=== PATIENT | male | born 1955 | race Caucasian/White ===

== ENCOUNTER → 2016-11-15 | Outpatient (CLI) | payer OTHER ==
[2016-11-15 09:31] LABS: ABSOLUTE BASOPHILS # (AUTO) 0.1 10^3/uL (0.0-0.2); ABSOLUTE EOSINOPHILS # (AUTO) 0.4 10^3/uL (0.0-0.6); ABSOLUTE LYMPHOCYTES (AUTO) 2.4 10^3/uL (0.5-4.7); ABSOLUTE MONOCYTES (AUTO) 0.8 10^3/uL (0.1-1.4); ABSOLUTE NEUT (AUTO) 5.4 10^3/uL (1.7-8.2); EOSINOPHILS % (AUTO) 4.1 % (0-6); HEMATOCRIT 47.2 % (37.9-51.0); HEMOGLOBIN 16.3 g/dL (13.5-17.0); HGB HCT DIFFERENCE 1.7; LYMPHOCYTES % (AUTO) 26.2 % (13-45); MEAN CORPUSCULAR HEMOGLOBIN 30.8 pg (27.0-33.4); MEAN CORPUSCULAR HGB CONC 34.6 g/dL (32.0-36.0); MEAN CORPUSCULAR VOLUME 89 fl (80-97); RED BLOOD COUNT 5.31 10^6/uL (4.35-5.55); RED CELL DISTRIBUTION WIDTH 12.9 % (11.5-14.0); SEGMENTED NEUTROPHILS % (AUTO) 59.7 % (42-78)
[2016-11-15 10:00] LABS: ALANINE AMINOTRANSFERASE 26 U/L (21-72); ALBUMIN 4.6 g/dL (3.5-5.0); ALKALINE PHOSPHATASE 55 U/L (38-126); ANION GAP 11 (5-19); ASPARTATE AMINO TRANSFERASE 18 U/L (17-59); BILIRUBIN,DIRECT 0.4 mg/dL (0.0-0.4); BILIRUBIN,TOTAL 0.5 mg/dL (0.2-1.3); BLOOD UREA NITROGEN 19 mg/dL (7-20); CALCIUM 10.3 mg/dL (8.4-10.2); CARBON DIOXIDE 24 mmol/L (22-30); CHLORIDE 106 mmol/L (98-107); Direct HDL 59 mg/dL (>40); GLUCOSE 102 mg/dL (75-110); POTASSIUM 4.7 mmol/L (3.6-5.0); SODIUM 141.3 mmol/L (137-145); TOTAL PROTEIN 7.3 g/dL (6.3-8.2); TRIGLYCERIDES 140 mg/dL (<150)
[2016-11-15 10:10] LABS: DIRECT LDL 152 mg/dL (<100)
== END ==
LOC: OD 08:15
PROVIDERS: ATTEND Family Medicine Geriatric Medicine
DX: Z79.899 Other long term (current) drug therapy (principal)
CPT/HCPCS: 36415; 80053; 80061; 83036; 84443; 85025

== ENCOUNTER → 2017-02-20 | Outpatient (CLI) | payer OTHER ==
[2017-02-20 09:29] LABS: ALANINE AMINOTRANSFERASE 37 U/L (21-72); ANION GAP 10 (5-19); ASPARTATE AMINO TRANSFERASE 24 U/L (17-59); BLOOD UREA NITROGEN 20 mg/dL (7-20); CARBON DIOXIDE 27 mmol/L (22-30); CHLORIDE 108 mmol/L (98-107); CHOLESTEROL 226.44 mg/dL (0-200); GLUCOSE 95 mg/dL (75-110); POTASSIUM 4.6 mmol/L (3.6-5.0); SODIUM 145.1 mmol/L (137-145); TRIGLYCERIDES 150 mg/dL (<150)
[2017-02-20 09:40] LABS: DIRECT LDL 150 mg/dL (<100)
== END ==
LOC: OD 08:10
PROVIDERS: ATTEND Family Medicine Geriatric Medicine
DX: E83.52 Hypercalcemia (principal)
CPT/HCPCS: 36415; 80048; 80061; 84450; 84460

== ENCOUNTER → 2017-05-30 | Outpatient (CLI) | payer OTHER ==
[2017-05-30 09:18] LABS: ALANINE AMINOTRANSFERASE 37 U/L (21-72); ASPARTATE AMINO TRANSFERASE 20 U/L (17-59); CHOLESTEROL 160.55 mg/dL (0-200); TRIGLYCERIDES 66 mg/dL (<150)
[2017-05-30 09:29] LABS: DIRECT LDL 81 mg/dL (<100)
== END ==
LOC: OD 08:24
PROVIDERS: ATTEND Family Medicine Geriatric Medicine
DX: E78.5 Hyperlipidemia, unspecified (principal); R73.01 Impaired fasting glucose; E66.9 Obesity, unspecified; Z79.899 Other long term (current) drug therapy; Z29.9 Encounter for prophylactic measures, unspecified
CPT/HCPCS: 36415; 80061; 83036; 84450; 84460

== ENCOUNTER → 2017-11-21 | Outpatient (CLI) | payer OTHER ==
[2017-11-21 10:02] LABS: ALANINE AMINOTRANSFERASE 37 U/L (21-72); ASPARTATE AMINO TRANSFERASE 24 U/L (17-59); CHOLESTEROL 148.19 mg/dL (0-200); TRIGLYCERIDES 62 mg/dL (<150)
[2017-11-21 10:13] LABS: DIRECT LDL 66 mg/dL (<100)
== END ==
LOC: OD 09:05
PROVIDERS: ATTEND Family Medicine Geriatric Medicine
DX: E78.5 Hyperlipidemia, unspecified (principal); R73.01 Impaired fasting glucose; Z79.899 Other long term (current) drug therapy
CPT/HCPCS: 36415; 80061; 83036; 84450; 84460

== ENCOUNTER → 2018-05-29 | Outpatient (CLI) | payer OTHER ==
[2018-05-29 10:18] LABS: ALANINE AMINOTRANSFERASE 44 U/L (21-72); ANION GAP 8 (5-19); BLOOD UREA NITROGEN 13 mg/dL (7-20); CARBON DIOXIDE 25 mmol/L (22-30); CHLORIDE 108 mmol/L (98-107); CHOLESTEROL 142.21 mg/dL (0-200); GLUCOSE 91 mg/dL (75-110); POTASSIUM 4.8 mmol/L (3.6-5.0); TRIGLYCERIDES 103 mg/dL (<150)
[2018-05-29 10:28] LABS: DIRECT LDL 84 mg/dL (<100)
== END ==
LOC: OD 08:24
PROVIDERS: ATTEND Family Medicine Geriatric Medicine
DX: E78.5 Hyperlipidemia, unspecified (principal); Z79.899 Other long term (current) drug therapy
CPT/HCPCS: 36415; 80048; 80061; 83036; 84460

== ENCOUNTER → 2018-11-27 | Outpatient (CLI) | payer OTHER ==
[2018-11-27 09:41] LABS: ABSOLUTE BASOPHILS # (AUTO) 0.1 10^3/uL (0.0-0.2); ABSOLUTE EOSINOPHILS # (AUTO) 0.3 10^3/uL (0.0-0.6); ABSOLUTE LYMPHOCYTES (AUTO) 1.7 10^3/uL (0.5-4.7); ABSOLUTE MONOCYTES (AUTO) 0.6 10^3/uL (0.1-1.4); ABSOLUTE NEUT (AUTO) 3.8 10^3/uL (1.7-8.2); HEMATOCRIT 45.9 % (37.9-51.0); HEMOGLOBIN 15.4 g/dL (13.5-17.0); LYMPHOCYTES % (AUTO) 26.8 % (13-45); MEAN CORPUSCULAR HEMOGLOBIN 30.2 pg (27.0-33.4); MEAN CORPUSCULAR HGB CONC 33.5 g/dL (32.0-36.0); MEAN CORPUSCULAR VOLUME 90 fl (80-97); MONOCYTES % (AUTO) 9.6 % (3-13); PLATELET COUNT 270 10^3/uL (150-450); RED BLOOD COUNT 5.09 10^6/uL (4.35-5.55); RED CELL DISTRIBUTION WIDTH 13.2 % (11.5-14.0); SEGMENTED NEUTROPHILS % (AUTO) 58.6 % (42-78); TOTAL CELLS COUNTED % (AUTO) 100 %; WHITE BLOOD COUNT 6.4 10^3/uL (4.0-10.5)
[2018-11-27 10:13] LABS: ANION GAP 10 (5-19); BLOOD UREA NITROGEN 18 mg/dL (7-20); CALCIUM 10.1 mg/dL (8.4-10.2); CARBON DIOXIDE 22 mmol/L (22-30); CHLORIDE 107 mmol/L (98-107); CHOLESTEROL 130.79 mg/dL (0-200); GLUCOSE 101 mg/dL (75-110); POTASSIUM 4.6 mmol/L (3.6-5.0); TRIGLYCERIDES 59 mg/dL (<150)
[2018-11-27 10:24] LABS: DIRECT LDL 79 mg/dL (<100)
== END ==
LOC: OD 08:27
PROVIDERS: ATTEND Family Medicine Geriatric Medicine
DX: E78.5 Hyperlipidemia, unspecified (principal); R73.01 Impaired fasting glucose; E66.9 Obesity, unspecified; Z79.899 Other long term (current) drug therapy
CPT/HCPCS: 36415; 80048; 80061; 83036; 84460; 85025

== ENCOUNTER → 2018-12-14 | Outpatient (CLI) | payer OTHER ==
--- NOTE | 2018-12-14 09:59 | RADIOLOGY REPORT (SQ) ---
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 NUMBER OF VIEWS: Three views. TECHNIQUE: AP, lateral and oblique radiographic images acquired of the left foot. LIMITATIONS: None. FINDINGS: MINERALIZATION: Normal. BONES: No acute fracture or dislocation. Bipartite tibial and fibula sesamoid bones overlie the head of the first metatarsal bone, normal anatomic variants. Plantar calcaneal spur. JOINTS: No effusions. SOFT TISSUES: No soft tissue swelling. No foreign body. OTHER: No other significant finding. IMPRESSION: 1. No acute osseous findings. 2. Calcaneal spur. TECHNICAL DOCUMENTATION: JOB ID: [id number] [employer]- All Rights Reserved Reading location - IP/workstation name: [email or web address]
== END ==
LOC: OD 07:39
PROVIDERS: ATTEND Family Medicine Geriatric Medicine
DX: M79.672 Pain in left foot (principal); Z79.899 Other long term (current) drug therapy
CPT/HCPCS: 36415; 84550

== ENCOUNTER 2019-05-23 05:42 | Observation (INO) | payer OTHER ==
--- NOTE | 2019-05-23 06:31 | EKG REPORT ---
SEVERITY:- ABNORMAL ECG - ATRIAL FLUTTER 2:1 BLOCK PROBABLE INFERIOR INFARCT, AGE INDETERMINATE REPOL ABNRM SUGGESTS ISCHEMIA, DIFFUSE LEADS : Confirmed by: Leighton Bennett MD 23-May-2019 06:31:08
[2019-05-23] MEDS ORDERED: NORMAL SALINE 250 ML IV ONE (06:40)
[2019-05-23 06:56] LABS: ABSOLUTE BASOPHILS # (AUTO) 0.1 10^3/uL (0.0-0.2); ABSOLUTE EOSINOPHILS # (AUTO) 0.3 10^3/uL (0.0-0.6); ABSOLUTE LYMPHOCYTES (AUTO) 1.4 10^3/uL (0.5-4.7); ABSOLUTE MONOCYTES (AUTO) 0.5 10^3/uL (0.1-1.4); ABSOLUTE NEUT (AUTO) 3.8 10^3/uL (1.7-8.2); BASOPHILS % (AUTO) 1.4 % (0-2); EOSINOPHILS % (AUTO) 4.2 % (0-6); HEMATOCRIT 45.4 % (37.9-51.0); HEMOGLOBIN 15.7 g/dL (13.5-17.0); MEAN CORPUSCULAR HEMOGLOBIN 30.9 pg (27.0-33.4); MEAN CORPUSCULAR HGB CONC 34.5 g/dL (32.0-36.0); MEAN CORPUSCULAR VOLUME 90 fl (80-97); MONOCYTES % (AUTO) 8.9 % (3-13); PLATELET COUNT 231 10^3/uL (150-450); RED BLOOD COUNT 5.07 10^6/uL (4.35-5.55); RED CELL DISTRIBUTION WIDTH 14.6 % (11.5-14.0); SEGMENTED NEUTROPHILS % (AUTO) 62.5 % (42-78); TOTAL CELLS COUNTED % (AUTO) 100 %
[2019-05-23 06:58] LABS: INTERNATIONAL RATION (INR) 1.09; PROTHROMBIN TIME 14.2 SEC (11.4-15.4)
[2019-05-23 06:59] LABS: PARTIAL THROMBOPLASTIN TIME 27.1 SEC (23.5-35.8)
[2019-05-23 07:01] LABS: D-DIMER 0.44 ug/mL (0.00-0.50)
[2019-05-23 07:06] LABS: ALBUMIN 3.7 g/dL (3.5-5.0); ALKALINE PHOSPHATASE 116 U/L (38-126); ANION GAP 9 (5-19); ASPARTATE AMINO TRANSFERASE 56 U/L (17-59); BILIRUBIN,TOTAL 0.7 mg/dL (0.2-1.3); BLOOD UREA NITROGEN 25 mg/dL (7-20); CALCIUM 9.1 mg/dL (8.4-10.2); CARBON DIOXIDE 18 mmol/L (22-30); CHLORIDE 112 mmol/L (98-107); GLUCOSE 118 mg/dL (75-110); TOTAL PROTEIN 6.3 g/dL (6.3-8.2)
[2019-05-23 07:17] LABS: TROPONIN I 0.028 ng/mL
[2019-05-23] MEDS ORDERED: HYDRALAZINE HCL INJ/PF 20 MG/1 ML SDV IV ONE (07:33)
[2019-05-23] MEDS ORDERED: NITROGLYCERIN 2% OINTMENT 1 GM PACKET TP ONE (07:34)
[2019-05-23] MEDS ORDERED: FUROSEMIDE INJ/PF 40 MG/4 ML SDV IV ONE (07:35)
[2019-05-23] MEDS ORDERED: MORPHINE SULFATE 10 MG/ML INJ IV ONE (07:41)
[2019-05-23 07:48] LABS: VENOUS BLOOD BASE EXCESS -5.1 mmol/L; VENOUS BLOOD HCO3 18.2 mmol/L (20-32); VENOUS BLOOD PCO2 30.2 mmHg (35-63); VENOUS BLOOD PH 7.4 (7.30-7.42)
[2019-05-23 08:46] LABS: APPEARANCE,URINE CLEAR; BILIRUBIN,URINE NEGATIVE (NEGATIVE); COLOR,URINE STRAW; GLUCOSE, URINE NEGATIVE (NEGATIVE); KETONES,URINE NEGATIVE (NEGATIVE); LEUKOCYTE ESTERASE,URINE NEGATIVE (NEGATIVE); NITRITE,URINE NEGATIVE (NEGATIVE); PROTEIN,URINE 30 mg/dL (NEGATIVE); URINE SPECIFIC GRAVITY 1.009; UROBILINOGEN,URINE NEGATIVE mg/dL (<2.0)
--- NOTE | 2019-05-23 08:48 | RADIOLOGY REPORT (SQ) ---
EXAM DESCRIPTION: CHEST 2 VIEWS IMAGES COMPLETED DATE/TIME: 05/23/2019 7:12 am REASON FOR STUDY: shortness of breath/tachycardia COMPARISON: None. NUMBER OF VIEWS: Two views. TECHNIQUE: Frontal and lateral radiographic views of the chest acquired. LIMITATIONS: None. FINDINGS: LUNGS AND PLEURA: No opacities, masses or pneumothorax. No pleural effusion. MEDIASTINUM AND HILAR STRUCTURES: No masses or contour abnormality. HEART AND VASCULAR STRUCTURES: Cardiac enlargement. Vascular congestion. BONES: No acute findings. HARDWARE: None in the chest. OTHER: No other significant finding. IMPRESSION: CARDIAC ENLARGEMENT. VASCULAR CONGESTION. TECHNICAL DOCUMENTATION: JOB ID: [id number] 2010 [employer]- All Rights Reserved Reading location - IP/workstation name: [email or web address]
--- NOTE | 2019-05-23 08:50 | RADIOLOGY REPORT (SQ) ---
EXAM DESCRIPTION: HIP RIGHT AP/LATERAL IMAGES COMPLETED DATE/TIME: 05/23/2019 7:12 am REASON FOR STUDY: pain COMPARISON: None. NUMBER OF VIEWS: Two views. TECHNIQUE: AP pelvis and additional frog-leg view of the right hip. LIMITATIONS: None. FINDINGS: Straight is. Joint space narrowing, subchondral cyst with near bone on bone contact right hip. SI joints are normal. IMPRESSION: Advanced osteoarthritis right hip. TECHNICAL DOCUMENTATION: JOB ID: [id number] 2010 [employer]- All Rights Reserved Reading location - IP/workstation name: [email or web address]
[2019-05-23 09:01] LABS: URINE AMPHETAMINES SCREEN NEGATIVE; URINE BARBITURATES SCREEN NEGATIVE; URINE BENZODIAZEPINES SCREEN NEGATIVE; URINE COCAINE SCREEN NEGATIVE; URINE MARIJUANA (THC) SCREEN NEGATIVE; URINE METHADONE SCREEN NEGATIVE; URINE PHENCYCLIDINE SCREEN NEGATIVE
[2019-05-23] MEDS ORDERED: METOPROLOL TARTRATE PF/INJ 5 MG/5 ML SDV IV ONE ×2 (09:49→10:35)
[2019-05-23] MEDS ORDERED: ASPIRIN 81 MG TABLET, CHEWABLE PO ONE (10:01)
--- NOTE | 2019-05-23 10:06 | RADIOLOGY REPORT (SQ) ---
EXAM DESCRIPTION: VENOUS BILATERAL LOWER IMAGES COMPLETED DATE/TIME: 05/23/2019 9:36 am REASON FOR STUDY: leg pain/sinus tachycardia/sobr COMPARISON: None. TECHNIQUE: Dynamic and static urias scale and color images acquired of both lower extremity venous sy stems. Selected spectral images acquired with additional compression and augmentation maneuvers. Imag es stored on PACS. LIMITATIONS: None. FINDINGS: RIGHT LEG COMMON FEMORAL AND FEMORAL: Normal phasicity, compression and augmentation. No visualized echogenic m aterial on urias scale. No defects on color images. POPLITEAL: Normal compression and augmentation. No visualized echogenic material on urias scale. No de fects on color images. CALF VESSELS: Normal compression and augmentation. No visualized echogenic material on urias scale. No defects on color image. GSV AND SSV: Normal compression. No visualized echogenic material on urias scale. No defects on color images. ANY DEEP VENOUS INSUFFICIENCY: Not evaluated. ANY EVIDENCE OF POPLITEAL CYST: No. OTHER: No other significant finding. LEFT LEG COMMON FEMORAL AND FEMORAL: Normal phasicity, compression and augmentation. No visualized echogenic m aterial on urias scale. No defects on color images. POPLITEAL: Normal compression and augmentation. No visualized echogenic material on urias scale. No de fects on color images. CALF VESSELS: Normal compression and augmentation. No visualized echogenic material on urias scale. No defects on color images. GSV AND SSV: Normal compression. No visualized echogenic material on urias scale. No defects on color images. ANY DEEP VENOUS INSUFFICIENCY: Not evaluated. ANY EVIDENCE POPLITEAL CYST: No. OTHER: No other significant finding. IMPRESSION: NO EVIDENCE DVT OR SVT IN EITHER LEG. TECHNICAL DOCUMENTATION: JOB ID: [id number] 2010 [employer]- All Rights Reserved Reading location - IP/workstation name: [email or web address]
--- NOTE | 2019-05-23 10:13 | ER Document Report ---
Entered by ARCHANA ALMAGUER SCRIBE 05/23/19 0640 Acting as scribe for:SRIDEVI PORTER MD ED General - General Chief Complaint: High Blood Pressure Stated Complaint: DIFFICULTY BREATHING,BLOOD PRESSURE ISSUES Time Seen by Provider: 05/23/19 06:14 Primary Care Provider: LOUIS COOLEY MD [Primary Care Provider] - Follow up as needed Information source: Patient Notes: This 63-year-old male presents to the emergency department complaining of difficulty breathing this morning at 4AM. Patient explains that he was awoken from his sleep and was "gasping for air". Patient states he had associated diaphoresis. Patient denies chest pain, nausea, throat pain, fever, cough or feeling his heart racing. Patient said that he felt normal when he went to sleep last night and took his usual Tylenol PM for sleep. Patient mentions that his has been checking his temperature and blood pressure since the start of the COVID-19 pandemic. Patient states that his temperature has been normal but he has been running a high blood pressure since they started checking about a week ago. Patient also mentions that he has noticed being short of breath since his right hip pain began in November, (6 months ago). Patient states that his hip pain right now is a 2/10. Patient states that he is overall healthy, drinks plenty of fluids, walks 30 minutes every evening and has been seeing his PCP every 6 months for the past three years. TRAVEL OUTSIDE OF THE [place] 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 denies: Fever EENT: See HPI. denies: Throat pain, Difficulty swallowing Cardiovascular: See HPI. denies: Chest pain, Heart racing Respiratory: See HPI, Short of breath. denies: Cough Gastrointestinal: See HPI. denies: Nausea Genitourinary: No symptoms reported Male Genitourinary: No symptoms reported Musculoskeletal: Other - Right hip pain Skin: No symptoms reported Hematologic/Lymphatic: No symptoms reported Neurological/Psychological: No symptoms reported -: Yes All other systems reviewed and negative Physical Exam - Vital signs Vitals: Resp 22 H 05/23/19 05:54 - Notes Notes: Physical Exam: General: Alert, appears well. HEENT: Normocephalic. Atraumatic. PERRL. Extraocular movements intact. Oropharynx clear. Neck: Supple. Non-tender. Respiratory: No respiratory distress. Clear and equal breath sounds bilaterally. Cardiovascular: Sinus Tachycardic. Abdominal: Normal Inspection. Non-tender. No distension. Normal Bowel Sounds. Back: No gross abnormalities. Extremities: Moves all four extremities. Upper extremities: Normal inspection. Normal ROM. Lower extremities: Normal inspection. No edema. Normal ROM. Neurological: Normal cognition. AAOx4. Normal speech. Psychological: Normal affect. Normal Mood. Skin: Warm. Dry. Normal color. Course - Re-evaluation Re-evalutation: 05/23/19 10:08 Patient has diuresed 3 L of's urine since treatment for congestive heart failure with IV Lasix 2 mg morphine and Nitropaste to skin. Sinus tachycardia has improved down to 102 with 5 mg IV Lopressor. Patient sats are 98% in room air. Patient continues to deny any chest pain and shortness of breath has improved. Patient does have an elevated troponin which may be secondary to congestive heart failure as opposed to coronary artery disease. Nonetheless 4 baby aspirin's has been prescribed to patient. Patient's risk factors for cardiac disease include hyperlipidemia hypertension age greater than 50 and obesity. - Vital Signs Vital signs: Temp Pulse Resp BP Pulse Ox 98.1 F 20 146/107 H 98 05/23/19 06:09 05/23/19 09:01 05/23/19 09:01 05/23/19 09:01 - Laboratory Result Diagrams: 05/23/19 06:15 05/23/19 06:15 Laboratory results interpreted by me: 03/30/20 03/30/20 03/30/20 06:15 06:15 06:15 RDW 14.6 H VBG pCO2 VBG HCO3 Chloride 112 H Carbon Dioxide 18 L BUN 25 H Glucose 118 H ALT 78 H NT-Pro-B Natriuret Pep 2370 H Urine Protein 05/23/19 05/23/19 07:25 08:15 RDW VBG pCO2 30.2 L VBG HCO3 18.2 L Chloride Carbon Dioxide BUN Glucose ALT NT-Pro-B Natriuret Pep Urine Protein 30 H Elevated troponin secondary to a troponin leak with congestive heart failure and sinus tachycardia. Elevated BNP consistent with CHF. - Diagnostic Test Radiology reviewed: Image reviewed, Reports reviewed Radiology results interpreted by me: 05/23/19 10:10 Chest x-ray shows cardiomegaly and vascular congestive markings consistent with CHF Right hip shows no acute process. No fractures no dislocation. Venous Doppler studies of both lower extremities are both negative for any DVT as a preliminary report from the cardiology service. - EKG Interpretation by Me Additional EKG results interpreted by me: 05/23/19 10:11 Twelve-lead EKG shows sinus tachycardia at 121 questionable old inferior PR repolarization changes of ischemia noted. Discharge - Discharge Clinical Impression: New onset of congestive heart failure, Sinus tachycardia, Elevated troponin I level, Hypertension Condition: Fair Disposition: ADMITTED INPATIENT Admitting Provider: Radha (Hospitalist) Unit Admitted: Telemetry Referrals: LOUIS COOLEY MD [Primary Care Provider] - Follow up as needed I personally performed the services described in the documentation, reviewed and edited the documentation which was dictated to the scribe in my presence, and it accurately records my words and actions.
[2019-05-23] MEDS ORDERED: MAG HYDROX/AL HYDROX/SIMETH SUSP 30 ML UDCUP PO PRN (10:44)
[2019-05-23] MEDS ORDERED: ACETAMINOPHEN 325 MG TABLET PO PRN (10:44)
[2019-05-23] MEDS ORDERED: MAGNESIUM HYDROXIDE SUSP 30 ML UDCUP PO PRN (10:44)
[2019-05-23] MEDS ORDERED: ONDANSETRON HCL INJ/PF 4 MG/2 ML SDV IV PRN (10:44)
[2019-05-23] MEDS ORDERED: LISINOPRIL 5 MG TABLET PO SCH (11:00)
[2019-05-23] MEDS ORDERED: LORAZEPAM 1 MG TABLET PO PRN (11:06)
--- NOTE | 2019-05-23 11:08 | PDOC H&P ---
History of Present Illness Admission Date/PCP: 05/23/19 10:39 LOUIS COOLEY MD Patient complains of: fatigue, orthopnea History of Present Illness: NOREEN LIANG III is a 63 year old male with a past medical history of hyperlipidemia, alcohol dependence, obesity, who presents to the emergency department with several weeks of progressively worsening fatigue, elevated hypertension and heart rate by home monitoring, and sudden onset of orthopnea last night. He specifically denies upper respiratory symptoms (rhinorrhea, sore throat, cough) and fever. Evaluation in the emergency department revealed tachycardia with heart rate in the 150s, hypertensive urgency, unremarkable CBC, coags,nml chemistry, proBNP of 2300, indeterminately elevated troponin of 0.028, normal urinalysis, and negative UDS. Serum EtOH is pending. Initial EKG showed atrial flutter with a 2-1 conduction. Chest x-ray shows cardiomegaly with vascular congestion. Hip x-ray and venous Dopplers are benign. He has been provided IV Lopressor and furosemide with excellent diuresis (3.5 L) and was referred to the hospitalist service for new onset CHF. Past Medical History Cardiac Medical History: Reports: Hyperlipidema Denies: Atrial Fibrillation, Congestive Heart Failure, Coronary Artery Disease, Myocardial Infarction, Hypertension Pulmonary Medical History: Reports: None EENT Medical History: Reports: None Neurological Medical History: Reports: None Endocrine Medical History: Reports: Obesity Renal/ Medical History: Reports: None Malignancy Medical History: Reports: None GI Medical History: Reports: None Musculoskeltal Medical History: Reports: None Skin Medical History: Reports: None Psychiatric Medical History: Reports: Alcohol Dependency Traumatic Medical History: Reports: None Hematology: Reports: None Infectious Medical History: Reports: None Past Surgical History Past Surgical History: Reports: Orthopedic Surgery - Left Shoulder Social History Information Source: Patient Lives with: Spouse/Significant other Smoking Status: Never Smoker Electronic Cigarette use?: No Frequency of Alcohol Use: Heavy Amount of Alcoholic Beverages Per Day: 4 Last Alcohol Use: 05/21/19 Hx Recreational Drug Use: No Drugs: None Hx Prescription Drug Abuse: No - Advance Directive Resuscitation Status: Full Code Family History Family History: Reviewed & Not Pertinent, CAD, Hypertension Parental Family History Reviewed: Yes Children Family History Reviewed: Yes Sibling(s) Family History Reviewed.: Yes Medication/Allergy Home Medications: Atorvastatin Calcium [Lipitor 40 mg Tablet] 40 mg PO QHS 05/23/19 Allergies/Adverse Reactions: No Known Allergies Allergy (Verified 05/23/19 10:31) Review of Systems Constitutional: PRESENT: fatigue. ABSENT: chills, fever(s), headache(s), weight gain, weight loss Eyes: ABSENT: visual disturbances Ears: ABSENT: hearing changes Cardiovascular: PRESENT: edema, orthropnea. ABSENT: chest pain, dyspnea on exertion, palpitations Respiratory: ABSENT: cough, hemoptysis Gastrointestinal: ABSENT: abdominal pain, constipation, diarrhea, hematemesis, hematochezia, nausea, vomiting Genitourinary: ABSENT: dysuria, hematuria Musculoskeletal: ABSENT: joint swelling Integumentary: ABSENT: rash, wounds Neurological: ABSENT: abnormal gait, abnormal speech, confusion, dizziness, focal weakness, syncope Psychiatric: ABSENT: anxiety, depression, homidical ideation, suicidal ideation Endocrine: ABSENT: cold intolerance, heat intolerance, polydipsia, polyuria Hematologic/Lymphatic: ABSENT: easy bleeding, easy bruising Physical Exam Vital Signs: Temp Pulse Resp BP Pulse Ox 98.1 F 28 H 123/97 H 95 05/23/19 06:09 05/23/19 10:01 05/23/19 10:00 05/23/19 10:00 Intake & Output 05/22/19 05/23/19 05/24/19 06:59 06:59 06:59 Output Total 3500 Balance -3500 Weight 104.326 kg General appearance: PRESENT: no acute distress, cooperative, obese, well- developed, well-nourished Head exam: PRESENT: atraumatic, normocephalic Eye exam: PRESENT: conjunctiva pink, EOMI, PERRLA. ABSENT: scleral icterus Ear exam: PRESENT: normal external ear exam Mouth exam: PRESENT: moist, tongue midline Neck exam: ABSENT: carotid bruit, JVD, lymphadenopathy, thyromegaly Respiratory exam: PRESENT: clear to auscultation alyssa, symmetrical, unlabored, other - room air. ABSENT: rales, rhonchi, wheezes Cardiovascular exam: PRESENT: RRR, +S1, +S2, tachycardia. ABSENT: diastolic murmur, rubs, systolic murmur Pulses: PRESENT: normal dorsalis pedis pul Vascular exam: PRESENT: normal capillary refill GI/Abdominal exam: PRESENT: normal bowel sounds, soft. ABSENT: distended, guarding, mass, organolmegaly, rebound, tenderness Rectal exam: PRESENT: deferred Extremities exam: PRESENT: full ROM, +1 edema - BLE. ABSENT: calf tenderness, clubbing Neurological exam: PRESENT: alert, awake, oriented to person, oriented to place, oriented to time, oriented to situation, CN II-XII grossly intact. ABSENT: motor sensory deficit Psychiatric exam: PRESENT: appropriate affect, normal mood. ABSENT: homicidal ideation, suicidal ideation Skin exam: PRESENT: dry, intact, warm. ABSENT: cyanosis, rash Results Laboratory Results: 05/23/19 06:15 05/23/19 06:15 05/23/19 05/23/19 05/23/19 06:15 06:15 06:15 WBC 6.0 RBC 5.07 Hgb 15.7 Hct 45.4 MCV 90 MCH 30.9 MCHC 34.5 RDW 14.6 H Plt Count 231 Seg Neutrophils % 62.5 VBG pH VBG pCO2 VBG HCO3 VBG Base Excess Sodium 139.4 Potassium 4.0 Chloride 112 H Carbon Dioxide 18 L Anion Gap 9 BUN 25 H Creatinine 0.82 Est GFR ( Amer) > 60 Glucose 118 H Lactic Acid Calcium 9.1 Total Bilirubin 0.7 AST 56 Alkaline Phosphatase 116 Total Protein 6.3 Albumin 3.7 TSH 2.84 Urine Color Urine Appearance Urine pH Ur Specific Plummer Urine Protein Urine Glucose (UA) Urine Ketones Urine Blood Urine Nitrite Ur Leukocyte Esterase Urine WBC (Auto) Urine RBC (Auto) 05/23/19 05/23/19 05/23/19 07:25 07:25 08:15 WBC RBC Hgb Hct MCV MCH MCHC RDW Plt Count Seg Neutrophils % VBG pH 7.40 VBG pCO2 30.2 L VBG HCO3 18.2 L VBG Base Excess -5.1 Sodium Potassium Chloride Carbon Dioxide Anion Gap BUN Creatinine Est GFR ( Amer) Glucose Lactic Acid 1.1 Calcium Total Bilirubin AST Alkaline Phosphatase Total Protein Albumin TSH Urine Color STRAW Urine Appearance CLEAR Urine pH 5.0 Ur Specific Plummer 1.009 Urine Protein 30 H Urine Glucose (UA) NEGATIVE Urine Ketones NEGATIVE Urine Blood NEGATIVE Urine Nitrite NEGATIVE Ur Leukocyte Esterase NEGATIVE Urine WBC (Auto) 1 Urine RBC (Auto) 1 05/23/19 06:15 Troponin I 0.028 NT-Pro-B Natriuret Pep 2370 H Impressions: Chest X-Ray 05/23/19 06:39 IMPRESSION: CARDIAC ENLARGEMENT. VASCULAR CONGESTION. Hip/Pelvis X-Ray 05/23/19 06:43 IMPRESSION: Advanced osteoarthritis right hip. Venous Doppler Study 05/23/19 06:54 IMPRESSION: NO EVIDENCE DVT OR SVT IN EITHER LEG. Assessment and Plan - Diagnosis (1) New onset atrial flutter Is this a current diagnosis for this admission?: Yes Plan: Rate controlled with IV Lopressor x1 by ED provider. Will admit to the medical floor on continuous cardiac telemetry. Full dose Lovenox. Will need to discuss chronic anticoagulation prior to discharge. PO diltiazem 30 mg every 6 hours. Daily aspirin therapy. Follow-up EKG in the morning. Outpatient cardiology follow-up. (2) New onset of congestive heart failure Is this a current diagnosis for this admission?: Yes Plan: Secondary to atrial fibrillation RVR. proBNP elevated at 3000. Echocardiogram pending. Daily aspirin and statin therapy. Start low-dose lisinopril. Diltiazem for atrial flutter RVR. Cardiac diet Daily weights, strict I&O's (3) Hypertension Qualifiers: Hypertension type: essential hypertension Qualified Code(s): I10 - Essential (primary) hypertension Is this a current diagnosis for this admission?: Yes Plan: Lisinopril and diltiazem as above. Cardiac diet. (4) Alcohol dependence Qualifiers: Substance use status: uncomplicated Qualified Code(s): F10.20 - Alcohol dependence, uncomplicated Is this a current diagnosis for this admission?: Yes Plan: Serum EtOH pending. No history of withdrawal. No evidence of withdrawal at this time, although, patient did present with at rial flutter RVR. Patient reports that he has had no changes in his usual alcohol intake of 3-4 beers nightly. Monitor closely for evidence of worsening withdrawal. PO Ativan as needed. Folic acid and thiamin supplementation. - Time Time Spent with patient: 35 or more minutes Medications reviewed and adjusted accordingly: Yes Anticipated discharge: Home Within: within 24 hours
[2019-05-23] MEDS ORDERED: ENOXAPARIN SODIUM INJ 100 MG/1 ML DISP.SYRIN SUBCUT ONE (11:15)
[2019-05-23] MEDS ORDERED: DILTIAZEM HCL 30 MG TABLET PO SCH (12:00)
[2019-05-23] MEDS: FOLIC ACID 1 MG TABLET PO SCH (12:24)
[2019-05-23] MEDS: THIAMINE HCL 100 MG TABLET PO SCH (12:24)
--- NOTE | 2019-05-23 13:26 | EKG REPORT ---
SEVERITY:- ABNORMAL ECG - A-FLUTTER W/ PREDOM 2:1 AV BLOCK, A-RATE 245 PROBABLE INFERIOR INFARCT, AGE INDETERMINATE LATERAL LEADS ARE ALSO INVOLVED : Confirmed by: Abhijit Mccracken 23-May-2019 13:24:37
--- NOTE | 2019-05-23 16:51 | XCELERA REPORT ---
[address] [address] Transthoracic Echocardiogram Report Name: NOREEN LIANG, III Age: 63 yrs Gender: Male : 1955 Patient Status: Inpatient Patient Location: [facility]^A Study Date: 05/23/2019 01:04 PM Height: 72 in Weight: 230 lb BSA: 2.3 m2 Reason For Study: New CHF exacerbation Ordering Physician: SOFÍA ESCALANTE Performed By: Kim Ballard Interpretation Summary Severely reduced left ventricular ejection fraction less than 30% Mild, concentric LVH Unable to determine diastolic function in the setting of rapid atrial flutter during exam Biatrial enlargement RV dilation (visually) Reduced RV function (visually) Mild TR with RVSP 30mmHg Trivial MR aortic root 3.8cm, mildly dilated MMode/2D Measurements & Calculations RVDd: 4.4 cm LVIDd: 5.3 cm FS: 18.6 % Ao root diam: 3.8 cm IVSd: 1.0 cm LVIDs: 4.3 cm EDV(Teich): 134.8 ml LVPWd: 0.99 cmESV(Teich): 83.4 ml Ao root area: 11.6 cm2 EF(Teich): 38.2 % IVC Diam_phl: 2.2 cm Doppler Measurements & Calculations MV E max jessica: MV dec slope: Ao V2 max: LV V1 max P.8 cm/sec 79.2 cm/sec 2.2 mmHg 888.2 cm/sec2 Ao max PG: LV V1 max: MV dec time: 0.09 sec 2.5 mmHg 74.6 cm/sec PA V2 max: TR max jessica: 57.1 cm/sec 237.9 cm/sec PA max P.3 mmHg TR max P.7 mmHg Left Ventricle The left ventricle is grossly normal size. There is mild concentric left ventricular hypertrophy. Left ventricular systolic function is severely reduced. LVEF <25%. The Ejection Fraction estimate is 20-25%. LV diastolic function could not be adequately assessed. due to rapid atrial flutter during this exam. There is severe global hypokinesis of the left ventricle. There is no thrombus. Right Ventricle The right ventricle is mildly dilated. not well seen in apial views; no measurements on this exam. no rv functional assessment visually appears reduced. Atria Not measured; appears moderately dilated. The left atrium is severely dilated. There is no Doppler evidence for an interatrial shunt. Mitral Valve not assessed. There is a trace amount of mitral regurgitation. not well seen on this exam. Aortic Valve The aortic valve is trileaflet and normal in structure. The gradient across the valve reflects no hemodynamically significant degree of stenosis. No insufficiency seen. The aortic valve is normal in structure and function. There is no aortic valve stenosis. No aortic regurgitation is present. Tricuspid Valve There is a mild amount of tricuspid regurgitation. 25mmHg+5mmHg RVSP 30mmHg. Right ventricular systolic pressure is estimated to be within upper limit of normal. Pulmonic Valve There is no pulmonic valvular regurgitation. Great Vessels The aortic root is mildly dilated. not well visualized. The inferior vena cava appeared normal. RA est 3-5mmHg. Effusions There is no pericardial effusion. : SOFÍA ESCALANTE, Zurdo Garcia
[2019-05-23] MEDS: FUROSEMIDE INJ/PF 20 MG/2 ML SDV IV SCH (17:39)
[2019-05-23] MEDS: METOPROLOL SUCCINATE 25 MG TAB.SR.24H PO SCH (22:53)
[2019-05-23] MEDS: ATORVASTATIN CALCIUM 40 MG TABLET PO SCH (22:53)
[2019-05-23] MEDS: FAMOTIDINE INJ/PF 20 MG/2 ML SDV IV SCH (22:54)
[2019-05-23] MEDS: ENOXAPARIN SODIUM INJ 100 MG/1 ML DISP.SYRIN SUBCUT SCH (22:54)
[2019-05-24] MEDS: FUROSEMIDE INJ/PF 20 MG/2 ML SDV IV SCH ×2 (05:52→17:29)
[2019-05-24 06:17] LABS: ANION GAP 8 (5-19); BLOOD UREA NITROGEN 26 mg/dL (7-20); CALCIUM 9.3 mg/dL (8.4-10.2); CARBON DIOXIDE 26 mmol/L (22-30); CHLORIDE 106 mmol/L (98-107); GLUCOSE 87 mg/dL (75-110); POTASSIUM 3.7 mmol/L (3.6-5.0); TRIGLYCERIDES 78 mg/dL (<150)
[2019-05-24 06:28] LABS: DIRECT LDL 66 mg/dL (<100)
--- NOTE | 2019-05-24 09:26 | EKG REPORT ---
SEVERITY:- ABNORMAL ECG - ATRIAL FLUTTER, A-RATE 254 PROBABLE INFERIOR INFARCT, AGE INDETERMINATE ABNRM R PROG, CONSIDER ASMI OR LEAD PLACEMENT : Confirmed by: Abhijit Mccracken 24-May-2019 09:26:06
[2019-05-24] MEDS: FAMOTIDINE INJ/PF 20 MG/2 ML SDV IV SCH (09:41)
[2019-05-24] MEDS: DOCUSATE SODIUM 100 MG CAPSULE PO SCH (09:41)
[2019-05-24] MEDS: THIAMINE HCL 100 MG TABLET PO SCH (09:41)
[2019-05-24] MEDS: METOPROLOL SUCCINATE 25 MG TAB.SR.24H PO SCH ×2 (09:41→21:30)
[2019-05-24] MEDS: ENOXAPARIN SODIUM INJ 100 MG/1 ML DISP.SYRIN SUBCUT SCH (09:41)
[2019-05-24] MEDS: FOLIC ACID 1 MG TABLET PO SCH (09:41)
--- NOTE | 2019-05-24 09:59 | PDOC CONSULTATION ---
Consultation Consult Date: 05/24/19 Attending physician:: SOFÍA ESCALANTE Provider Consulted: CAMPBELL CHIN Consult reason:: CHF History of Present Illness Admission Date/PCP: 05/23/19 10:39 LOUIS COOLEY MD Patient complains of: Dyspnea History of Present Illness: NOREEN LIANG III is a 63 year old male with past medical history significant for hyperlipidemia and presumed alcohol dependence who presented to the emergency department with acute onset of dyspnea/PND. The patient explains that he awoke suddenly around 4 AM and was acutely dyspneic which prompted his emergency department visit. He does endorse dyspnea with exertion over the last several weeks to months, then later states that his breathing has not been normal for "a long time." He does not specifically recall significant lower extremity edema. The patient denies palpitations, presyncope/syncope, angina, orthopnea. The patient has no history of hypertension, diabetes or known heart disease. The patient states that he drinks roughly a shot of whiskey occasionally and roughly 5-6 beers every evening. The patient works in [employer]. Past Medical History Cardiac Medical History: Reports: Hyperlipidema Denies: Atrial Fibrillation, Congestive Heart Failure, Coronary Artery Disease, Myocardial Infarction, Hypertension Pulmonary Medical History: Reports: None Denies: Asthma, Bronchitis, Chronic Obstructive Pulmonary Disease (COPD), Pneumonia EENT Medical History: Reports: None Neurological Medical History: Reports: None Denies: Seizures Endocrine Medical History: Reports: Obesity Renal/ Medical History: Reports: None Malignancy Medical History: Reports: None GI Medical History: Reports: None Musculoskeltal Medical History: Reports: None Denies: Arthritis Skin Medical History: Reports: None Psychiatric Medical History: Reports: Alcohol Dependency Traumatic Medical History: Reports: None Hematology: Reports: None Denies: Anemia Infectious Medical History: Reports: None Past Surgical History Past Surgical History: Reports: Orthopedic Surgery - Left Shoulder Social History Lives with: Spouse/Significant other Smoking Status: Never Smoker Electronic Cigarette use?: No Frequency of Alcohol Use: Occasional Hx Recreational Drug Use: No Drugs: None Hx Prescription Drug Abuse: No - Advance Directive Resuscitation Status: Full Code Family History Family History: Reviewed & Not Pertinent, CAD, Hypertension Parental Family History Reviewed: Yes Children Family History Reviewed: Yes Sibling(s) Family History Reviewed.: Yes Medication/Allergy Home Medications: Atorvastatin Calcium [Lipitor 40 mg Tablet] 40 mg PO QHS 05/23/19 Allergies/Adverse Reactions: No Known Allergies Allergy (Verified 05/23/19 10:31) Review of Systems Review of Systems: 14 systems reviewed and negative except as otherwise noted above in HPI Physical Exam Vital Signs: Temp Pulse Resp BP Pulse Ox 97.3 F 95 19 104/80 94 05/24/19 07:17 05/24/19 07:17 05/24/19 07:17 05/24/19 07:17 05/24/19 07:17 Intake & Output 05/23/19 05/24/19 05/25/19 06:59 06:59 06:59 Intake Total 1196 Output Total 3800 Balance -2604 Weight 104.326 kg 106.4 kg Exam: General Appearance: no acute distress, well developed, well nourished, no diaphoresis. Eyes:. Pupils equal round reactive to light, no injection no jaundice. EOMI HENT: atraumatic, oropharynx is clear with moist mucous membranes and acceptable dentition. Neck: supple, no masses, no thyromegaly and normal jugular venous pressure. Lungs: clear to auscultation, no wheezing/rhonchi, normal respiratory effort. Cardiovascular: Palpation of heart: normal PMI, no thrills. Auscultation of Heart: normal rate and rhythm, normal S1 and S2, without murmurs, S3, no S4. Carotid pulses: no bruit, normal amplitude. Abdominal aorta: no bruit, normal amplitude. Radial pulses: normal amplitude. Femoral pulses: no bruit, normal amplitude. Pedal pulses: normal amplitude. Examination of extremities for edema and/or varicosities: trivial bilateral pretibial edema Abdomen: normal bowel sounds, soft, non-tender, no masses, no hepatomegaly, no splenomegaly. Musculoskeletal: normal movement of all extremities. Extremities: no clubbing, no cyanosis. Integumentary: warm and dry bilaterally with no ulcers. Psychiatric: awake, alert and oriented x 3. Appropriate mood and affect. Results Laboratory Results: 05/23/19 06:15 05/24/19 05:17 05/24/19 05:17 Sodium 140.1 Potassium 3.7 Chloride 106 Carbon Dioxide 26 Anion Gap 8 BUN 26 H Creatinine 0.96 Est GFR ( Amer) > 60 Glucose 87 Calcium 9.3 Magnesium 2.1 Triglycerides 78 Cholesterol 115.70 LDL Cholesterol Direct 66 VLDL Cholesterol 16.0 HDL Cholesterol 43 03/30/20 03/30/20 03/30/20 06:15 11:00 18:00 Troponin I 0.028 0.024 0.021 NT-Pro-B Natriuret Pep 2370 H 05/23/19 05/24/19 23:35 05:17 Troponin I 0.019 NT-Pro-B Natriuret Pep 1430 H MEDICATION ADMINISTRATION RECORD Generic Name Dose Route Start Last Admin Trade Name Freq PRN Reason Stop Dose Admin Acetaminophen 650 mg 05/23/19 10:44 Tylenol 325 Mg Tablet PO 06/22/19 10:43 Q4HP PRN pain or temp greater than 101F Al Hydrox/Mg Hydrox/Simethicone 30 ml 05/23/19 10:44 Maalox Plus Susp 30 Udcup PO 06/22/19 10:43 Q4HP PRN HEARTBURN Apixaban 5 mg 05/24/19 18:00 Eliquis 5 Mg Tablet PO 06/23/19 17:59 BID RENEE Atorvastatin Calcium 40 mg 05/23/19 22:00 05/23/19 22:53 Lipitor 40 Mg Tablet PO 06/22/19 21:59 40 mg QHS RENEE Administration Digoxin 0.25 mg 05/24/19 12:00 Lanoxin 0.25 Mg Tablet PO 05/25/19 00:01 Q6 RENEE Docusate Sodium 100 mg 05/24/19 10:00 05/24/19 09:41 Colace 100 Mg Capsule PO 06/23/19 09:59 100 mg DAILY RENEE Administration Folic Acid 1 mg 05/23/19 12:00 05/24/19 09:41 Folvite 1 Mg Tablet PO 06/22/19 11:59 1 mg DAILY RENEE Administration Furosemide 20 mg 05/23/19 18:00 05/24/19 05:52 Lasix Inj/Pf 20 Mg/2 Ml Sdv IV 06/22/19 17:59 20 mg Q12A RENEE Administration Lorazepam 2 mg 05/23/19 11:06 Ativan 1 Mg Tablet PO 05/30/19 11:05 Q4HP PRN Anxiety/Agitation/Withdrawal Losartan Potassium 25 mg 05/24/19 10:00 05/24/19 09:42 Cozaar 25 Mg Tablet PO 06/23/19 09:59 25 mg DAILY RENEE Administration Magnesium Hydroxide 30 ml 05/23/19 10:44 Milk Of Magnesia 30 Ml Udcup PO 06/22/19 10:43 HSP PRN FOR CONSTIPATION Metoprolol Succinate 25 mg 05/23/19 22:00 05/24/19 09:41 Toprol Xl 25 Mg Tab.Sr PO 06/22/19 21:59 25 mg Q12 RENEE Administration Ondansetron HCl 4 mg 05/23/19 10:44 Zofran Inj/Pf 4 Mg/2 Ml Sdv IV 06/22/19 10:43 Q6HP PRN FOR NAUSEA/VOMITING Sodium Chloride 2.5 ml 05/23/19 14:00 05/24/19 05:56 Saline Flush 2.5 Ml Monoject Prefil Syrin IV 06/22/19 13:59 2.5 ml Q8 RENEE Administration Thiamine HCl 100 mg 05/23/19 12:00 05/24/19 09:41 Thiamine 100 Mg Tablet PO 06/22/19 11:59 100 mg DAILY RENEE Administration EKG Comments: Personal interpretation of EKG is atrial flutter with rapid ventricular response 120s, nonspecific ST-T wave abnormality, equivocal inferior q's and normal QT interval. Impressions: Chest X-Ray 05/23/19 06:39 IMPRESSION: CARDIAC ENLARGEMENT. VASCULAR CONGESTION. Hip/Pelvis X-Ray 05/23/19 06:43 IMPRESSION: Advanced osteoarthritis right hip. Venous Doppler Study 05/23/19 06:54 IMPRESSION: NO EVIDENCE DVT OR SVT IN EITHER LEG. Assessment & Plan - Notes Notes: Acute on chronic systolic CHF, newly diagnosed with severely reduced LVEF -Cardiomyopathy of unclear etiology at this time. 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 -Guideline directed medical therapy which was discussed with the primary team yesterday and today - pt received lisinopril around noon yesterday so losartan 25mg daily was added and will be transitioned to 24/26mg Entresto if bp tolerates in 36hrs - cont toprol xl 25mg bid - LifeVest ordered by primary team; discussed at length with patient today -Low-sodium diet, strict I's and O's, standing daily weights if possible - continue low dose iv lasix daily Atrial flutter with RVR - 120s on tele this am - eliquis 5mg bid to start this evening as he already received treatment dose of Lovenox this morning -Aspirin was stopped -Case discussed with electrophysiology. Currently this is not an emergent case and we are unable to accomplish GABINO with DCCV due to COVID19 restrictions / precautions. As such the patient will undergo digoxin loading for improved rate control. Orders placed at this time. - daily EKGs ordered Hypertension -BP at goal Medications per above Alcohol dependence - management per primary; recommend close monitoring for withdrawal I discussed at length with the patient the importance of abstinence from alcohol to allow the best chance for his heart to recover function
[2019-05-24] MEDS ORDERED: LOSARTAN POTASSIUM 25 MG TABLET PO SCH (10:00)
[2019-05-24] MEDS ORDERED: ASPIRIN 81 MG TABLET, ENT COATED PO SCH (10:00)
--- NOTE | 2019-05-24 11:08 | PDOC PROGRESS REPORT ---
Subjective Progress Note for:: 05/24/19 Subjective:: Patient says breathing is much improved. He was able to sleep well during the night. He continues to deny palpitations Reason For Visit: A. FLUTTER, HEART FAILURE Physical Exam Vital Signs: Temp Pulse Resp BP Pulse Ox 97.3 F 95 19 104/80 94 05/24/19 07:17 05/24/19 07:17 05/24/19 07:17 05/24/19 07:17 05/24/19 07:17 Intake & Output 05/23/19 05/24/19 05/25/19 06:59 06:59 06:59 Intake Total 1196 Output Total 3800 Balance -2604 Weight 104.326 kg 106.4 kg General appearance: PRESENT: no acute distress, well-developed, well-nourished Head exam: PRESENT: atraumatic, normocephalic Eye exam: PRESENT: conjunctiva pink, EOMI, PERRLA. ABSENT: scleral icterus Ear exam: PRESENT: normal external ear exam Mouth exam: PRESENT: moist, tongue midline Neck exam: ABSENT: carotid bruit, JVD, lymphadenopathy, thyromegaly Respiratory exam: PRESENT: crackles. ABSENT: rales, rhonchi, wheezes Cardiovascular exam: PRESENT: irregular rhythm, +S1, +S2. ABSENT: diastolic murmur, rubs, systolic murmur Pulses: PRESENT: normal dorsalis pedis pul Vascular exam: PRESENT: normal capillary refill GI/Abdominal exam: PRESENT: normal bowel sounds, soft. ABSENT: distended, guarding, mass, organolmegaly, rebound, tenderness Rectal exam: PRESENT: deferred Extremities exam: PRESENT: full ROM. ABSENT: calf tenderness, clubbing, pedal edema Neurological exam: PRESENT: alert, awake, oriented to person, oriented to place, oriented to time, oriented to situation, CN II-XII grossly intact. ABSENT: motor sensory deficit Psychiatric exam: PRESENT: appropriate affect, normal mood. ABSENT: homicidal ideation, suicidal ideation Skin exam: PRESENT: dry, intact, warm. ABSENT: cyanosis, rash Results Laboratory Results: 05/23/19 06:15 05/24/19 05:17 05/24/19 05:17 Sodium 140.1 Potassium 3.7 Chloride 106 Carbon Dioxide 26 Anion Gap 8 BUN 26 H Creatinine 0.96 Est GFR ( Amer) > 60 Glucose 87 Calcium 9.3 Magnesium 2.1 Triglycerides 78 Cholesterol 115.70 LDL Cholesterol Direct 66 VLDL Cholesterol 16.0 HDL Cholesterol 43 05/23/19 05/23/19 05/23/19 06:15 11:00 18:00 Troponin I 0.028 0.024 0.021 NT-Pro-B Natriuret Pep 2370 H 05/23/19 05/24/19 23:35 05:17 Troponin I 0.019 NT-Pro-B Natriuret Pep 1430 H EKG Comments: Atrial flutter Impressions: Chest X-Ray 05/23/19 06:39 IMPRESSION: CARDIAC ENLARGEMENT. VASCULAR CONGESTION. Hip/Pelvis X-Ray 05/23/19 06:43 IMPRESSION: Advanced osteoarthritis right hip. Venous Doppler Study 05/23/19 06:54 IMPRESSION: NO EVIDENCE DVT OR SVT IN EITHER LEG. Assessment and Plan - Diagnosis (1) New onset atrial flutter Is this a current diagnosis for this admission?: Yes Plan: As he remains in atrial flutter patient will need to be cardioverted. He likely will need EPS and cardiac cath as outpatient with this can be deferred for now. We will switch patient to Xarelto from Lovenox. Dr. Flood has been consulted for cardioversion (2) Hypertension Qualifiers: Hypertension type: essential hypertension Qualified Code(s): I10 - Essential (primary) hypertension Is this a current diagnosis for this admission?: Yes Plan: Currently controlled on current regimen (3) Elevated troponin I level Is this a current diagnosis for this admission?: Yes Plan: Secondary to arrhythmia. ACS ruled out (4) New onset of congestive heart failure Is this a current diagnosis for this admission?: Yes Plan: Ejection fraction is 30%. Etiology of his heart failure is not known at this time. He definitely will need a cardiac cath for further assessment. Patient does give a history of alcohol use, 3-4 beers daily and this may have contributed to the cardiomyopathy but there is really no other Benjie as of severe alcohol dependency. His ALT is slightly elevated otherwise his CBC and LFTs grossly unremarkable. She has been seen by cardiology. Because he still in atrial fibrillation flutter he will need to be cardioverted. Patient will also need to be switched to Entresto. Is currently on ARB, and the plan is to start Entresto hopefully by tomorrow. Continue with diuresis as well as beta-mukesh (5) Alcohol dependence Qualifiers: Substance use status: uncomplicated Qualified Code(s): F10.20 - Alcohol dependence, uncomplicated Is this a current diagnosis for this admission?: Yes Plan: Patient apparently drinks 3-4 beers daily. No evidence of withdrawal. This should be considered as an etiology of his cardiomyopathy if no other etiology detected - Time Time Spent with patient: 25-34 minutes Medications reviewed and adjusted accordingly: Yes Anticipated discharge: Home Within: within 24 hours - Inpatient Certification Based on my medical assessment, after consideration of the patient's comorbidities, presenting symptoms, or acuity I expect that the services needed warrant INPATIENT care.: Yes Medical Necessity: Need For Continuous Telemetry Monitoring
[2019-05-24] MEDS ORDERED: DIGOXIN 0.25 MG TABLET PO ONE (11:22)
--- NOTE | 2019-05-24 16:23 | EKG REPORT ---
SEVERITY:- ABNORMAL ECG - ATRIAL FLUTTER, A-RATE 241 PROBABLE INFERIOR INFARCT, AGE INDETERMINATE LATERAL LEADS ARE ALSO INVOLVED BORDERLINE PROLONGED QT INTERVAL VPCs : Confirmed by: Abhijit Mccracken 24-May-2019 16:23:32
[2019-05-24] MEDS ORDERED: RIVAROXABAN 15 MG TABLET PO SCH (17:00)
[2019-05-24] MEDS: APIXABAN 5 MG TABLET PO SCH (17:29)
[2019-05-24] MEDS: DIGOXIN 0.25 MG TABLET PO SCH (17:29)
[2019-05-24] MEDS: ATORVASTATIN CALCIUM 40 MG TABLET PO SCH (21:30)
[2019-05-25] MEDS: DIGOXIN 0.25 MG TABLET PO SCH ×2 (01:00→07:01)
[2019-05-25 06:05] LABS: ANION GAP 10 (5-19); BLOOD UREA NITROGEN 24 mg/dL (7-20); CALCIUM 9.6 mg/dL (8.4-10.2); CARBON DIOXIDE 24 mmol/L (22-30); CHLORIDE 105 mmol/L (98-107); GLUCOSE 89 mg/dL (75-110); POTASSIUM 3.8 mmol/L (3.6-5.0)
[2019-05-25] MEDS: FUROSEMIDE INJ/PF 20 MG/2 ML SDV IV SCH (07:01)
--- NOTE | 2019-05-25 08:29 | EKG REPORT ---
SEVERITY:- ABNORMAL ECG - A-FLUTTER W/ PREDOM 3:1 AV BLOCK, A-RATE 241 NONSPECIFIC INTRAVENTRICULAR CONDUCTION DELAY : Confirmed by: Abhijit Mccracken 25-May-2019 08:29:14
[2019-05-25] MEDS: METOPROLOL SUCCINATE 25 MG TAB.SR.24H PO SCH (10:40)
[2019-05-25] MEDS: APIXABAN 5 MG TABLET PO SCH (10:40)
[2019-05-25] MEDS: DOCUSATE SODIUM 100 MG CAPSULE PO SCH (10:40)
[2019-05-25] MEDS: FOLIC ACID 1 MG TABLET PO SCH (10:40)
[2019-05-25] MEDS: THIAMINE HCL 100 MG TABLET PO SCH (10:42)
[2019-05-25] MEDS ORDERED: SACUBITRIL/VALSARTAN 24 MG/26 MG TABLET PO SCH ×2 (11:00)
--- NOTE | 2019-05-25 12:22 | PDOC PROGRESS REPORT ---
Subjective Progress Note for:: 05/25/19 Subjective:: The patient is sitting up in bed and is comfortable this morning. I had a discussion with the patient and his on face time this morning. We spoke at length regarding his management and outpatient follow-up. All questions were answered. The patient denies angina, palpitations, presyncope/syncope, lower extremity edema, orthopnea or PND. 8 systems reviewed and negative except as otherwise noted above in the HPI. Reason For Visit: A. FLUTTER, HEART FAILURE Physical Exam Vital Signs: Temp Pulse Resp BP Pulse Ox 97.5 F 83 19 125/77 98 05/25/19 11:17 05/25/19 11:17 05/25/19 07:18 05/25/19 11:17 05/25/19 11:17 Intake & Output 05/24/19 05/25/19 05/26/19 06:59 06:59 06:59 Intake Total 1196 600 120 Output Total 3800 1525 1200 Balance -2604 -925 -1080 Weight 106.4 kg 101 kg Exam: General Appearance: no acute distress, well developed, well nourished, no diaphoresis. Eyes:. Pupils equal round reactive to light, no injection no jaundice. EOMI HENT: atraumatic, oropharynx is clear with moist mucous membranes and acceptable dentition. Neck: supple, no masses, no thyromegaly and normal jugular venous pressure. Lungs: clear to auscultation, no wheezing/rhonchi, normal respiratory effort. Cardiovascular: Palpation of heart: normal PMI, no thrills. Auscultation of Heart: regular 90s, normal S1 and S2, without murmurs, S3, no S4. Carotid pulses: no bruit, normal amplitude. Abdominal aorta: no bruit, normal amplitude. Radial pulses: normal amplitude. Femoral pulses: no bruit, normal amplitude. Pedal pulses: normal amplitude. Examination of extremities for edema and/or varicosities: trivial bilateral pretibial edema Abdomen: normal bowel sounds, soft, non-tender, no masses, no hepatomegaly, no splenomegaly. Musculoskeletal: normal movement of all extremities. Extremities: no clubbing, no cyanosis. Integumentary: warm and dry bilaterally with no ulcers. Psychiatric: awake, alert and oriented x 3. Appropriate mood and affect. Results Laboratory Results: 05/23/19 06:15 05/25/19 05:05 05/25/19 05:05 Sodium 139.3 Potassium 3.8 Chloride 105 Carbon Dioxide 24 Anion Gap 10 BUN 24 H Creatinine 0.81 Est GFR ( Amer) > 60 Glucose 89 Calcium 9.6 05/23/19 05/23/19 05/23/19 06:15 11:00 18:00 Troponin I 0.028 0.024 0.021 NT-Pro-B Natriuret Pep 2370 H 05/23/19 05/24/19 23:35 05:17 Troponin I 0.019 NT-Pro-B Natriuret Pep 1430 H MEDICATION ADMINISTRATION RECORD Generic Name Dose Route Start Last Admin Trade Name Freq PRN Reason Stop Dose Admin Acetaminophen 650 mg 05/23/19 10:44 Tylenol 325 Mg Tablet PO 06/22/19 10:43 Q4HP PRN pain or temp greater than 101F Al Hydrox/Mg Hydrox/Simethicone 30 ml 05/23/19 10:44 Maalox Plus Susp 30 Udcup PO 06/22/19 10:43 Q4HP PRN HEARTBURN Apixaban 5 mg 05/24/19 18:00 05/25/19 10:40 Eliquis 5 Mg Tablet PO 06/23/19 17:59 5 mg BID RENEE Administration Atorvastatin Calcium 40 mg 05/23/19 22:00 05/24/19 21:30 Lipitor 40 Mg Tablet PO 06/22/19 21:59 40 mg QHS RENEE Administration Docusate Sodium 100 mg 05/24/19 10:00 05/25/19 10:40 Colace 100 Mg Capsule PO 06/23/19 09:59 Not Given DAILY RENEE Folic Acid 1 mg 05/23/19 12:00 05/25/19 10:40 Folvite 1 Mg Tablet PO 06/22/19 11:59 1 mg DAILY RENEE Administration Furosemide 20 mg 05/23/19 18:00 05/25/19 07:01 Lasix Inj/Pf 20 Mg/2 Ml Sdv IV 06/22/19 17:59 20 mg Q12A RENEE Administration Lorazepam 2 mg 05/23/19 11:06 Ativan 1 Mg Tablet PO 05/30/19 11:05 Q4HP PRN Anxiety/Agitation/Withdrawal Magnesium Hydroxide 30 ml 05/23/19 10:44 Milk Of Magnesia 30 Ml Udcup PO 06/22/19 10:43 HSP PRN FOR CONSTIPATION Metoprolol Succinate 25 mg 05/23/19 22:00 05/25/19 10:40 Toprol Xl 25 Mg Tab.Sr PO 06/22/19 21:59 25 mg Q12 RENEE Administration Ondansetron HCl 4 mg 05/23/19 10:44 Zofran Inj/Pf 4 Mg/2 Ml Sdv IV 06/22/19 10:43 Q6HP PRN FOR NAUSEA/VOMITING Sacubitril/Valsartan 1 tab 05/25/19 11:00 05/25/19 10:45 Entresto 24 Mg/26 Mg Tablet PO 06/24/19 10:59 1 tab Q12 RENEE Administration Sodium Chloride 2.5 ml 05/23/19 14:00 05/25/19 07:01 Saline Flush 2.5 Ml Monoject Prefil Syrin IV 06/22/19 13:59 Not Given Q8 RENEE Thiamine HCl 100 mg 05/23/19 12:00 05/25/19 10:42 Thiamine 100 Mg Tablet PO 06/22/19 11:59 100 mg DAILY RENEE Administration Discontinued Medications Generic Name Dose Route Start Last Admin Trade Name Freq PRN Reason Stop Dose Admin Aspirin 324 mg 05/23/19 10:01 05/23/19 10:10 Aspirin 81 Mg Chewable Tablet PO 05/23/19 10:02 324 mg NOW ONE Administration Aspirin 81 mg 05/24/19 10:00 05/24/19 09:41 Ecotrin 81 Mg Ec Tablet PO 06/23/19 09:59 81 mg DAILY RENEE Administration Digoxin 0.5 mg 05/24/19 11:22 05/24/19 12:05 Lanoxin 0.25 Mg Tablet PO 05/24/19 11:23 0.5 mg NOW ONE Administration Digoxin 0.25 mg 05/24/19 18:00 05/25/19 07:01 Lanoxin 0.25 Mg Tablet PO 05/25/19 06:01 0.25 mg Q6 RENEE Administration Diltiazem HCl 30 mg 05/23/19 12:00 05/23/19 12:24 Cardizem 30 Mg Tablet PO 06/22/19 11:59 30 mg Q6 RENEE Administration Enoxaparin Sodium 100 mg 05/23/19 22:00 05/24/19 09:41 Lovenox Inj 100 Mg/1 Ml Disp.Syrin SUBCUT 06/22/19 21:59 100 mg Q12 RENEE Administration Enoxaparin Sodium 100 mg 05/23/19 11:15 05/23/19 12:25 Lovenox Inj 100 Mg/1 Ml Disp.Syrin SUBCUT 05/23/19 11:16 100 mg NOW ONE Administration Famotidine 20 mg 05/23/19 22:00 05/24/19 09:41 Pepcid Inj/Pf 20 Mg/2 Ml Sdv IV 06/22/19 21:59 20 mg Q12 RENEE Administration Furosemide 40 mg 05/23/19 07:35 05/23/19 07:50 Lasix Inj/Pf 40 Mg/4 Ml Sdv IV 05/23/19 07:36 40 mg NOW ONE Administration Hydralazine HCl 10 mg 05/23/19 07:33 05/23/19 07:51 Apresoline Inj/Pf 20 Mg/1 Ml Sdv IV 05/23/19 07:34 10 mg NOW ONE Administration Sodium Chloride 250 mls @ 0 mls/hr 05/23/19 06:40 05/23/19 07:42 Nacl 0.9% 250 Ml Iv Soln IV 05/23/19 06:41 Not Given NOW ONE Wide Open Lisinopril 5 mg 05/23/19 11:00 05/23/19 12:24 Prinivil 5 Mg Tablet PO 06/22/19 10:59 5 mg DAILY RENEE Administration Losartan Potassium 25 mg 05/24/19 10:00 05/24/19 09:42 Cozaar 25 Mg Tablet PO 06/23/19 09:59 25 mg DAILY RENEE Administration Metoprolol Tartrate 5 mg 05/23/19 09:49 05/23/19 09:54 Lopressor Inj/Pf 5 Mg/5 Ml Sdv IV 05/23/19 09:50 5 mg NOW ONE Administration Metoprolol Tartrate 5 mg 05/23/19 10:35 05/23/19 10:48 Lopressor Inj/Pf 5 Mg/5 Ml Sdv IV 05/23/19 10:36 Not Given NOW ONE Morphine Sulfate 2 mg 05/23/19 07:41 05/23/19 07:50 Morphine 10 Mg/Ml Inj IV 05/23/19 07:42 2 mg NOW ONE Administration Nitroglycerin 0.5 gm 05/23/19 07:34 05/23/19 07:50 Nitrol 2% Ointment 1gm Packet TP 05/23/19 07:35 0.5 gm NOW ONE Administration Rivaroxaban 15 mg 05/24/19 17:00 Xarelto 15 Mg Tablet PO 06/23/19 16:59 BIDBS RENEE Sacubitril/Valsartan 24 tab 05/25/19 11:00 Entresto 24 Mg/26 Mg Tablet PO 06/24/19 10:59 Q12 RENEE Impressions: Chest X-Ray 05/23/19 06:39 IMPRESSION: CARDIAC ENLARGEMENT. VASCULAR CONGESTION. Hip/Pelvis X-Ray 05/23/19 06:43 IMPRESSION: Advanced osteoarthritis right hip. Venous Doppler Study 05/23/19 06:54 IMPRESSION: NO EVIDENCE DVT OR SVT IN EITHER LEG. Assessment & Plan - Notes Notes: Acute on chronic systolic CHF, newly diagnosed with severely reduced LVEF; patient currently compensated at this time and euvolemic exam -Cardiomyopathy of unclear etiology at this time. 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 -Guideline directed medical therapy which was discussed with the primary team, nursing and the patient / his - Continue Entresto 24/26mg bid today - continue toprol xl 25mg bid - LifeVest ordered by primary team 05/22 per discussion; discussed at length with patient yesterday. Pt does not have vest on this morning. If unable to arrange today he can have this placed expeditiously as an outpatient from my office. -Low-sodium diet advised for home - convert to lasix 20mg once daily Atrial flutter with RVR -he is now rate controlled, 90s - Continue eliquis 5mg bid - No indication for anti-platelets such as aspirin -Case discussed with electrophysiology. Currently this is not an emergent case and we are unable to accomplish GABINO with DCCV due to COVID19 restrictions / precautions per [facility] and in-house anesthesiology. -Status post digoxin load with improved rate control -Please continue digoxin 125 mcg daily -EKG reviewed this morning personal interpretation 05/25/2019 at 6:28 AM is atrial flutter typical pattern in 3-1 conduction block rate 90. Hypertension -BP at goal Medications per above Alcohol dependence - management per primary; recommend close monitoring for withdrawal I discussed at length with the patient the importance of abstinence from alcohol to allow the best chance for his heart to recover function I have provided the patient with my card and will have the patient scheduled for follow-up shortly after discharge. The patient will also be returning to the office after discharge today for medication cards so that he can afford Eliquis as well as Entresto she is being discharged home on today.
[2019-05-25 12:41] VITALS: BP 111/78
--- NOTE | 2019-05-25 17:11 | PDOC DISCHARGE SUMMARY ---
Impression - Admit/DC Date/PCP Admission Date/Primary Care Provider: 05/23/19 10:39 LOUIS COOLEY MD Discharge Date: 05/25/19 - Discharge Diagnosis (1) New onset atrial flutter Is this a current diagnosis for this admission?: Yes (2) Hypertension Is this a current diagnosis for this admission?: Yes (3) Elevated troponin I level Is this a current diagnosis for this admission?: Yes (4) New onset of congestive heart failure Is this a current diagnosis for this admission?: Yes (5) Alcohol dependence Is this a current diagnosis for this admission?: Yes - Additional Information Resuscitation Status: Full Code Discharge Diet: Cardiac Discharge Activity: Activity As Tolerated, Balance Activity w/Rest, Weigh Daily Referrals: LOUIS COOLEY MD [Primary Care Provider] - 06/01/19 10:00 am (Called pt and left message on machine of appt. [employer]/[id number] ) CAMPBELL CHIN MD [ACTIVE PROVISIONAL STAFF] - 06/09/19 12:45 pm Prescriptions: Digoxin 125 mcg PO DAILY #30 tablet Apixaban [Eliquis 5 mg Tablet] 5 mg PO BID #60 tablet Sacubitril/Valsartan [Entresto 24 mg/26 mg Tablet] 1 tab PO Q12 #60 tablet Furosemide [Lasix 20 mg Tablet] 20 mg PO QAM #30 tablet Metoprolol Succinate [Toprol Xl 25 mg Tab.sr] 25 mg PO Q12 #60 tab.sr.24h Home Medications: Atorvastatin Calcium [Lipitor 40 mg Tablet] 40 mg PO QHS 05/23/19 Apixaban [Eliquis 5 mg Tablet] 5 mg PO BID #60 tablet 05/25/19 Digoxin 125 mcg PO DAILY #30 tablet 05/25/19 Folic Acid [Folvite 1 mg Tablet] 1 mg PO DAILY tablet 05/25/19 Furosemide [Lasix 20 mg Tablet] 20 mg PO QAM #30 tablet 05/25/19 Metoprolol Succinate [Toprol Xl 25 mg Tab.sr] 25 mg PO Q12 #60 tab.sr.24h 05/25/19 Sacubitril/Valsartan [Entresto 24 mg/26 mg Tablet] 1 tab PO Q12 #60 tablet 05/25/19 History of Present Illiness History of Present Illness: NOREEN L LIANG III is a 63 year old male presents to the emergency room with progressive difficulty breathing and shortness of breath. He was found to be tachycardic with a heart rate in the 150s and was found to be in atrial flutter on initial presentation. Chest x-ray shows cardiomegaly with vascular congestion. Please see admitting history and physical as well as consultation report by cardiology for full details. Hospital Course Hospital Course: Patient was in atrial floor and in fact he stayed in atrial flutter throughout his hospitalization. He was treated with metoprolol. His heart rate did improve. He was subsequently seen by biomedical equipment tech when he was found to have severe cardia myopathy with ejection fraction of less than 30%. Patient was started on anticoagulant and is been discharged home on Eliquis. Because of his severe cardiomyopathy patient was also started on Entresto and he will also require a LifeVest which will be arranged as outpatient. He was also started on digoxin. His symptoms have improved. His breathing is much better. Patient has been advised on the need to abstain from alcohol use. His blood pressure is also better improved. At this time patient appears to be stable enough for discharge so he is been discharged home for outpatient follow-up. He was given heart failure education as well as educated on Eliquis use. Initially the plan was for patient to be cardioverted as he remained in atrial flutter however due to the extenuating circumstances currently in the nation and as patient was relatively stable this was felt to be elective and could be deferred and so this should be closely monitored by biomedical equipment tech as outpatient Physical Exam Vital Signs: Temp Pulse Resp BP Pulse Ox 97.5 F 83 19 111/78 98 05/25/19 12:39 05/25/19 12:39 05/25/19 12:39 05/25/19 12:39 05/25/19 12:39 Intake & Output 05/24/19 05/25/19 05/26/19 06:59 06:59 06:59 Intake Total 1196 600 120 Output Total 3800 1525 1200 Balance -2604 -925 -1908 Weight 106.4 kg 101 kg General appearance: PRESENT: no acute distress, well-developed, well-nourished Head exam: PRESENT: atraumatic, normocephalic Eye exam: PRESENT: conjunctiva pink, EOMI, PERRLA. ABSENT: scleral icterus Ear exam: PRESENT: normal external ear exam Mouth exam: PRESENT: moist, tongue midline Neck exam: ABSENT: carotid bruit, JVD, lymphadenopathy, thyromegaly Respiratory exam: PRESENT: clear to auscultation alyssa. ABSENT: rales, rhonchi, wheezes Cardiovascular exam: PRESENT: irregular rhythm, +S1, +S2. ABSENT: diastolic murmur, rubs, systolic murmur Pulses: PRESENT: normal dorsalis pedis pul Vascular exam: PRESENT: normal capillary refill GI/Abdominal exam: PRESENT: normal bowel sounds, soft. ABSENT: distended, guarding, mass, organolmegaly, rebound, tenderness Rectal exam: PRESENT: deferred Extremities exam: PRESENT: full ROM, +1 edema. ABSENT: calf tenderness, clubbing, pedal edema Neurological exam: PRESENT: alert, awake, oriented to person, oriented to place, oriented to time, oriented to situation, CN II-XII grossly intact. ABSENT: motor sensory deficit Psychiatric exam: PRESENT: appropriate affect, normal mood. ABSENT: homicidal ideation, suicidal ideation Skin exam: PRESENT: dry, intact, warm. ABSENT: cyanosis, rash Results Laboratory Results: WBC 6.0 10^3/uL (4.0-10.5) 05/23/19 06:15 RBC 5.07 10^6/uL (4.35-5.55) 05/23/19 06:15 Hgb 15.7 g/dL (13.5-17.0) 05/23/19 06:15 Hct 45.4 % (37.9-51.0) 05/23/19 06:15 MCV 90 fl (80-97) 05/23/19 06:15 MCH 30.9 pg (27.0-33.4) 05/23/19 06:15 MCHC 34.5 g/dL (32.0-36.0) 05/23/19 06:15 RDW 14.6 % (11.5-14.0) H 05/23/19 06:15 Plt Count 231 10^3/uL (150-450) 05/23/19 06:15 Lymph % (Auto) 23.0 % (13-45) 05/23/19 06:15 [place] % (Auto) 8.9 % (3-13) 05/23/19 06:15 Eos % (Auto) 4.2 % (0-6) 05/23/19 06:15 Baso % (Auto) 1.4 % (0-2) 05/23/19 06:15 Absolute Neuts (auto) 3.8 10^3/uL (1.7-8.2) 05/23/19 06:15 Absolute Lymphs (auto) 1.4 10^3/uL (0.5-4.7) 05/23/19 06:15 Absolute Monos (auto) 0.5 10^3/uL (0.1-1.4) 05/23/19 06:15 Absolute Eos (auto) 0.3 10^3/uL (0.0-0.6) 05/23/19 06:15 Absolute Basos (auto) 0.1 10^3/uL (0.0-0.2) 05/23/19 06:15 Seg Neutrophils % 62.5 % (42-78) 05/23/19 06:15 PT 14.2 SEC (11.4-15.4) 05/23/19 06:15 INR 1.09 05/23/19 06:15 APTT 27.1 SEC (23.5-35.8) 05/23/19 06:15 D-Dimer 0.44 ug/mL (0.00-0.50) 05/23/19 06:15 VBG pH 7.40 (7.30-7.42) 05/23/19 07:25 VBG pCO2 30.2 mmHg (35-63) L 05/23/19 07:25 VBG HCO3 18.2 mmol/L (20-32) L 05/23/19 07:25 VBG Base Excess -5.1 mmol/L 05/23/19 07:25 Sodium 139.3 mmol/L (137-145) 05/25/19 05:05 Potassium 3.8 mmol/L (3.6-5.0) 05/25/19 05:05 Chloride 105 mmol/L (98-107) 05/25/19 05:05 Carbon Dioxide 24 mmol/L (22-30) 05/25/19 05:05 Anion Gap 10 (5-19) 05/25/19 05:05 BUN 24 mg/dL (7-20) H 05/25/19 05:05 Creatinine 0.81 mg/dL (0.52-1.25) 05/25/19 05:05 Est GFR ( Amer) > 60 (>60) 05/25/19 05:05 Est GFR (MDRD) Non-Af > 60 (>60) 05/25/19 05:05 Glucose 89 mg/dL (75-110) 05/25/19 05:05 Lactic Acid 1.1 mmol/L (0.7-2.1) 05/23/19 07:25 Calcium 9.6 mg/dL (8.4-10.2) 05/25/19 05:05 Magnesium 2.1 mg/dL (1.6-2.3) 05/24/19 05:17 Total Bilirubin 0.7 mg/dL (0.2-1.3) 05/23/19 06:15 Direct Bilirubin 0.0 mg/dL (0.0-0.4) 05/23/19 06:15 Neonat Total Bilirubin Not Reportable 05/23/19 06:15 Neonat Direct Bilirubin Not Reportable 05/23/19 06:15 Neonat Indirect Bili Not Reportable 05/23/19 06:15 AST 56 U/L (17-59) 05/23/19 06:15 ALT 78 U/L (<50) H 05/23/19 06:15 Alkaline Phosphatase 116 U/L (38-126) 05/23/19 06:15 Troponin I 0.019 ng/mL 05/23/19 23:35 NT-Pro-B Natriuret Pep 1430 pg/mL (<125) H 05/24/19 05:17 Total Protein 6.3 g/dL (6.3-8.2) 05/23/19 06:15 Albumin 3.7 g/dL (3.5-5.0) 05/23/19 06:15 Triglycerides 78 mg/dL (<150) 05/24/19 05:17 Cholesterol 115.70 mg/dL (0-200) 05/24/19 05:17 LDL Cholesterol Direct 66 mg/dL (<100) 05/24/19 05:17 VLDL Cholesterol 16.0 mg/dL (10-31) 05/24/19 05:17 HDL Cholesterol 43 mg/dL (>40) 05/24/19 05:17 TSH 2.84 uIU/mL (0.47-4.68) 05/23/19 06:15 Urine Color STRAW 05/23/19 08:15 Urine Appearance CLEAR 05/23/19 08:15 Urine pH 5.0 (5.0-9.0) 05/23/19 08:15 Ur Specific [place] 1.009 05/23/19 08:15 Urine Protein 30 mg/dL (NEGATIVE) H 05/23/19 08:15 Urine Glucose (UA) NEGATIVE mg/dL (NEGATIVE) 05/23/19 08:15 Urine Ketones NEGATIVE mg/dL (NEGATIVE) 05/23/19 08:15 Urine Blood NEGATIVE (NEGATIVE) 05/23/19 08:15 Urine Nitrite NEGATIVE (NEGATIVE) 05/23/19 08:15 Urine Bilirubin NEGATIVE (NEGATIVE) 05/23/19 08:15 Urine Urobilinogen NEGATIVE mg/dL (<2.0) 05/23/19 08:15 Ur Leukocyte Esterase NEGATIVE (NEGATIVE) 05/23/19 08:15 Urine WBC (Auto) 1 /HPF 05/23/19 08:15 Urine RBC (Auto) 1 /HPF 05/23/19 08:15 U Hyaline Cast (Auto) 3 /LPF 05/23/19 08:15 Urine Bacteria (Auto) TRACE /HPF 05/23/19 08:15 Squamous Epi Cells Auto <1 /HPF 05/23/19 08:15 Urine Mucus (Auto) OCC /LPF 05/23/19 08:15 Urine Ascorbic Acid NEGATIVE (NEGATIVE) 05/23/19 08:15 Urine Opiates Screen NEGATIVE 05/23/19 08:15 Urine Methadone Screen NEGATIVE 05/23/19 08:15 Ur Barbiturates Screen NEGATIVE 05/23/19 08:15 Ur Phencyclidine Scrn NEGATIVE 05/23/19 08:15 Ur Amphetamines Screen NEGATIVE 05/23/19 08:15 U Benzodiazepines Scrn NEGATIVE 05/23/19 08:15 Urine Cocaine Screen NEGATIVE 05/23/19 08:15 U Marijuana (THC) Screen NEGATIVE 05/23/19 08:15 Serum Alcohol < 10 mg/dL (NONE DETECTED) 05/23/19 06:15 05/23/19 05/23/19 05/23/19 06:15 11:00 18:00 Troponin I 0.028 0.024 0.021 NT-Pro-B Natriuret Pep 2370 H 05/23/19 05/24/19 23:35 05:17 Troponin I 0.019 NT-Pro-B Natriuret Pep 1430 H Impressions: Chest X-Ray 05/23/19 06:39 IMPRESSION: CARDIAC ENLARGEMENT. VASCULAR CONGESTION. Hip/Pelvis X-Ray 05/23/19 06:43 IMPRESSION: Advanced osteoarthritis right hip. Venous Doppler Study 05/23/19 06:54 IMPRESSION: NO EVIDENCE DVT OR SVT IN EITHER LEG. Plan Health Concerns: Patient has been advised on the need to totally abstain from alcohol and the need to follow-up with his biomedical equipment tech as recommended Time Spent: Greater than 30 Minutes Stroke Is this a Stroke Patient?: No Acute Heart Failure - Is this a Heart Failure Patient?: Yes Documentation of LVEF assessment?: Yes LVEF < 40%?: Yes-if yes answer questions a through e a) Discharged on ACEI?: N/A Discharged on ARNI b) Discharges on ARB?: N/A-Discharged on ARNI c) Discharged on ARNI?: Yes d) Discharged on evidence-based Beta mukesh(carvedilol, sustained release metoprolol succinate, or bisoprolol)?: Yes e) For LVEF <35%, discharged on Aldosterone antagonist?: No-document contraincations Reason(s) not discharged on Aldosterone antagonist for LVEF < 35%: Other - For outpatient eval 3. Anticoagulant therapy for permanect/persistent/paraoxysmal Afib or Aflutter: Yes Follow-up Appointment scheduled within 7 days?: Yes
== END 2019-05-25 13:15 | disposition home or self-care (01) ==
LOC: ER 05:42 → EH 10:39 → INTOOBSV 10:39 → 4N 11:11 → 3S 05-24 13:56
PROVIDERS: ADMIT Internal Medicine; ATTEND Internal Medicine
DX: I48.92 Unspecified atrial flutter (principal); I11.0 Hypertensive heart disease with heart failure; I50.23 Acute on chronic systolic (congestive) heart failure; I16.0 Hypertensive urgency; F10.20 Alcohol dependence, uncomplicated; I42.9 Cardiomyopathy, unspecified; M16.11 Unilateral primary osteoarthritis, right hip; E78.5 Hyperlipidemia, unspecified; E66.9 Obesity, unspecified; I48.91 Unspecified atrial fibrillation; Z79.899 Other long term (current) drug therapy; Z82.49 Family history of ischemic heart disease and other diseases of the circulatory system
CPT/HCPCS: 93005 ×3; 99285; 96374; 96375; 36415 ×3; 87040; 80307 ×2; 83605; 83735; 84443; 85025; 85610; 85730; 80048 ×2; 80053; 81001; 84484; 85379; 82803; 80061; 83880 ×2; 93306; 93970; 71046; 73502; 93010 ×3; J3490 ×5; J1940 ×4; J0360; J2270; J1650 ×2; S0028 ×2

== ENCOUNTER → 2019-06-17 | Outpatient (CLI) | payer BC, OTHER ==
[~2019-06-17] MED LIST: REGADENOSON INJ 0.4 MG/5 ML DISP.SYRIN IV ONE
--- NOTE | 2019-06-17 11:40 | DRAGON STRESS TEST REPORT ---
The patient underwent a stress/rest, single isotope SPECT Imaging with pharmaological stress and gated SPECT imaging on 06/17/19 for evaluation of cardiomyopathy. The patient underwent infusion of regadnoson mg IV using the standard protocol. The heart rate was 92 beats per minute at baseline and increased to125 beats during the infusion of regadenoson. The resting blood pressure was 94/68 mm/Hg and increased to156/78 mm/Hg. The patient complained of no symptoms during the procedure. The resting electrocardiogram demonstrated atrial fibrillation and did not show ST-segment changes consistent with ischemia. Myocardial perfusion imaging was performed at rest following the injection of 14.18 mCi of sestamibi. At peak pharmacolgic effect, the patient was injected with 45.1 mCi of sestamibi. Gating post-stress tomographic imaging was performed 60 minutes after stress. Findings The overall quality of the study is excellent. Raw images demonstrate no significant artifacts. Left ventricular cavity is noted to be mildly enlarged. There is no evidence of abnormal lung activity. Additionally, the right ventricle is normal. Resting SPECT images demonstrate homogeneous tracer distribution throughout the myocardium. The stress images reveal homogeneous tracer distribution throughout the myocardium. Gated SPECT imaging reveals normal myocardial thickening and wall motion. The left ventricular ejection fraction was calculated to be 41% with mild global hypokinesis. Impression -Myocardial perfusion imaging is normal with the above artifacts. -There is no scintigraphic evidence of ischemia or infarct. -Overall left ventricular systolic function is mildly decreased with mild global hypokinesis. -The left ventricle is mildly dilated. -There are no prior studies for comparison. [facility]
== END ==
LOC: RAD 06:47
PROVIDERS: ATTEND Internal Medicine Cardiovascular Disease
DX: R07.89 Other chest pain (principal); I48.3 Typical atrial flutter
CPT/HCPCS: 93017; 78452; A9500; J2785; Q9969

== ENCOUNTER → 2019-09-03 | Outpatient (CLI) | payer OTHER ==
[2019-09-03 09:46] LABS: ANION GAP 6 (5-19); BLOOD UREA NITROGEN 16 mg/dL (7-20); CALCIUM 9.9 mg/dL (8.4-10.2); CARBON DIOXIDE 25 mmol/L (22-30); CHLORIDE 106 mmol/L (98-107); CHOLESTEROL 129.52 mg/dL (0-200); GLUCOSE 107 mg/dL (75-110); POTASSIUM 4.5 mmol/L (3.6-5.0); TRIGLYCERIDES 104 mg/dL (<150)
[2019-09-03 09:54] LABS: DIRECT LDL 70 mg/dL (<100)
[2019-09-03 10:03] LABS: DIGOXIN < 0.40 ng/mL (0.8-2.0)
== END ==
LOC: OD 08:36
PROVIDERS: ATTEND Family Medicine Geriatric Medicine
DX: I48.92 Unspecified atrial flutter (principal); Z79.899 Other long term (current) drug therapy; E78.5 Hyperlipidemia, unspecified; E66.9 Obesity, unspecified
CPT/HCPCS: 36415; 80048; 80061; 80162; 83036; 84443; 84460

== ENCOUNTER → 2019-11-29 | Outpatient (CLI) | payer OTHER ==
[2019-11-29 18:04] LABS: ANION GAP 11 (5-19); BLOOD UREA NITROGEN 14 mg/dL (7-20); CALCIUM 9.9 mg/dL (8.4-10.2); CARBON DIOXIDE 23 mmol/L (22-30); CHLORIDE 104 mmol/L (98-107); GLUCOSE 78 mg/dL (75-110); POTASSIUM 4.7 mmol/L (3.6-5.0); URIC ACID 7.7 mg/dL (3.5-8.5)
== END ==
LOC: OD 16:43
PROVIDERS: ATTEND Family Medicine Geriatric Medicine
DX: T56.0X1D Toxic effect of lead and its compounds, accidental (unintentional), subsequent encounter (principal)
CPT/HCPCS: 36415; 80048; 84550

== ENCOUNTER → 2020-03-12 | Outpatient (CLI) | payer OTHER ==
[2020-03-12 08:52] LABS: CHOLESTEROL 135.49 mg/dL (0-200); TRIGLYCERIDES 154 mg/dL (<150); URIC ACID 6.1 mg/dL (3.5-8.5)
[2020-03-12 09:03] LABS: DIRECT LDL 63 mg/dL (<100)
[2020-03-12 09:06] LABS: VLDL CHOLESTEROL 30.8 mg/dL (10-31)
== END ==
LOC: OD 07:35
PROVIDERS: ATTEND Family Medicine Geriatric Medicine
DX: E78.1 Pure hyperglyceridemia (principal); Z79.899 Other long term (current) drug therapy
CPT/HCPCS: 36415; 80061; 83036; 84460; 84550